=== PATIENT | female | born 1995 | race Caucasian/White ===

== ENCOUNTER 2017-05-13 18:23 | Emergency (ER) | payer OTHER ==
[2017-05-13 18:35] VITALS: O2SAT 100
[2017-05-13] MEDS ORDERED: ONDANSETRON 4MG PREPACK#2 BTL TAKEHOME ONE (19:00)
--- NOTE | 2017-05-13 19:01 | EDPHY ---
H & P Stated Complaint: KIDNEY PAIN X 2-3 DAYS. RECENT UYI Source: Patient Exam Limitations: No limitations - Personal History LMP (Females 10-55): 22-28 Days Ago Current Tetanus/Diphtheria Vaccine: Yes Current Tetanus Diphtheria and Acellular Pertussis (TDAP): Yes - Medical/Surgical History Hx Asthma: No Hx Chronic Respiratory Disease: No Hx Diabetes: No Hx Cardiac Disease: No Hx Renal Disease: No Hx Cirrhosis: No Hx Alcoholism: No Hx HIV/AIDS: No Hx Splenectomy or Spleen Trauma: No Other PMH: DENIES - Social History Smoking Status: Never smoked Time Seen by Provider: 05/13/17 19:01 HPI/ROS: HPI: This is a 22-year-old female who presents Chief Complaint: KIDNEY PAIN X 2-3 DAYS. RECENT UTI Location: Quality: Burning with urination Duration: 2-3 days Signs and Symptoms: no fever, + nausea, no vomiting, no hematemesis, no blood in stool, no abdominal bloating, no diarrhea, + back pain, + burning with urination, no vaginal bleeding/discharge Timing: Sudden, constant Severity: Moderate to severe Context: Patient is generally healthy, accompanied by her father, presents with 2-3 day history of burning with urination, blood in her urine, left flank pain, lower back pain. She reports that she was treated for urinary tract infection at urgent care approximately 2 weeks ago. She is given an antibiotic , unsure of the name, completed 7 day course. She denies any fever/chills/ diarrhea/vaginal bleeding/vaginal discharge. No heavy lifting/trauma. LMP was 2 weeks ago. Eating and drinking normally. Patient reports that she does have some nausea. Patient denies being sexually active. Modifying Factors: None Comment: ROS: see HPI Constitutional: No fever, no chills, no weight loss Eyes: No blurred vision Respiratory: No shortness of breath, no cough Cardiovascular: No chest pain, no palpitations Gastrointestinal: + nausea, no vomiting, no diarrhea, no hematemesis, no blood in stool Genitourinary: + dysuria, + blood in urine Extremities: No myalgias, no edema Neurologic: No weakness, no numbness Skin: No rashes, no petechiae Hematologic: No bruising, no bleeding MEDICAL/SURGICAL/SOCIAL HISTORY: Medical history: Generally healthy. Does not take any regular medications. Surgical history: Denies Social history: Lives with her father. Student. CONSTITUTIONAL: Extremely anxious well-appearing young adult, white female awake and alert, no obvious distress HEENT: Atraumatic and normocephalic, PERRL, EOMI. Tympanic membranes clear. Oropharynx clear, no exudate and moist pink mucosa. Airway patent. No lymphadenopathy. No meningismus. Cardiovascular: Normal S1/S2, regular rate, regular rhythm, without murmur rub or gallop. PULMONARY/CHEST: Symmetrical and nontender. Clear to auscultation bilaterally. Good air movement. No accessory muscle usage. ABDOMEN: Soft, nondistended, mild suprapubic tenderness, no rebound, no guarding, no peritoneal signs, no masses or organomegaly. Left CVAT. EXTREMITIES: 2/2 pulses, strength 5/5, no deformities, no clubbing, no cyanosis or edema. NEUROLOGICAL: no focal neuro deficits. GCS 15. SKIN: Warm and dry, no erythema. no rash. Good capillary refill. (Maya Chin) Constitutional: Initial Vital Signs Temperature (C) 36.9 C 05/13/17 18:31 Heart Rate 97 05/13/17 18:31 Respiratory Rate 18 05/13/17 18:31 Blood Pressure 102/59 L 05/13/17 18:31 O2 Sat (%) 100 05/13/17 18:31 O2 Delivery Mode Room Air Allergies/Adverse Reactions: Sulfa (Sulfonamide Antibiotics) Allergy (Verified 05/13/17 18:31) Home Medications: Medication Instructions Recorded Ciprofloxacin [Cipro] 500 mg PO BID #14 tab 05/13/17 Medical Decision Making ED Course/Re-evaluation: Labs, urinalysis, IV fluids, IV medications, CT abdomen and pelvis scan ordered Vital signs reviewed upon arrival. Afebrile no systemic signs. Patient given 1 L normal saline Chart review shows that she had E coli UTI on 04/14 that was resistant to Bactrim, cefoxitin, cefazolin. Sensitive to ceftriaxone/Levaquin/Macrobid. 1930: Urinalysis shows infection; IV Rocephin 1 g ordered 1949: Labs reviewed; WBC 11 K, no signs of acute kidney injury Called by radiologist who advised that CT abdomen and pelvis scan shows Features of UTI within the left urinary system, without perinephric abscess or focal pyelonephritis. Discussion with attending and will place patient on Cipro 500 mg twice daily for 7 days. She is to have a follow-up evaluation [facility] and repeat urinalysis at the end of her antibiotic course. This patient was seen under the supervision of my secondary supervising physician. I evaluated care for this patient independently. Discussed this patient with Dr. Giraldo who did not see the patient. Patient's presentation, labs/imaging, treatment and plan of care were discussed with secondary supervising physician. (Maya Chin) Differential Diagnosis: Differential diagnosis includes but is not limited to urinary tract infection, kidney stone, pyelonephritis, sepsis. (Maya Chin) Other Provider: The patient was evaluated and managed by the Physician Shear Scrapman. I discussed the patient's presentation and course with the physician property management assistant and agree with the evaluation. My co-signature indicates that I have reviewed this chart and I agree with the findings and plan of care as documented. I am the secondary supervising physician. (Franca Giraldo) - Data Points Laboratory Results: Laboratory Results 05/13/17 19:21 05/13/17 19:21 Microbiology Results: MICROBIOLOGY 05/13/17 18:56 Urine,Clean Catch Urine Culture - Final Escherichia Coli Medications Given: Discontinued Medications Sodium Chloride (Ns) 1,000 mls @ 0 mls/hr IV ONCE ONE; Wide Open PRN Reason: Protocol Stop: 05/13/17 19:12 Last Admin: 05/13/17 19:21 Dose: 1,000 mls Ceftriaxone Sodium/Dextrose (Rocephin 1 Gm (Premix)) 50 mls @ 100 mls/hr IV EDNOW ONE PRN Reason: Protocol Stop: 05/13/17 20:02 Last Admin: 05/13/17 19:47 Dose: 50 mls Departure - Departure Disposition: Home, Routine, Self-Care Clinical Impression: UTI (urinary tract infection) Condition: Good Instructions: Urinary Tract Infection in Women (ED) Additional Instructions: No sexual intercourse, douching, tampon use, baths until all symptoms of a urinary tract infection have cleared. Follow-up with [facility] in the next 7-10 days. Would benefit for repeat urinalysis at the end of her antibiotic course to ensure that infection has cleared. Drink plenty of fluids and wash genital area with mild soap and water daily. Take all antibiotics as indicated until complete. If at any time your symptoms worsen despite antibiotic; please follow-up with the emergency room for repeat evaluation. Referrals: Jennifer Rahman MD [Medical Doctor] - As per Instructions Prescriptions: Ciprofloxacin [Cipro] 500 mg PO BID #14 tab
[2017-05-13] MEDS ORDERED: NS 1,000 ML IV ONE (19:11)
[2017-05-13 19:30] LABS: PLATELET COUNT 191 10^3/uL (150-400)
[2017-05-13] MEDS ORDERED: IOPAMIDOL (ISOVUE-300) 100 ML BTL ONE (20:06)
[2017-05-13 21:28] VITALS: BP 112/72; PULSE 85; TEMP 99.1
[2017-05-13 21:30] VITALS: RESP 14
== END 2017-05-13 21:29 | disposition home or self-care (01) ==
DX: N30.01 Acute cystitis with hematuria (principal); B96.20 Unspecified Escherichia coli [E. coli] as the cause of diseases classified elsewhere; E86.9 Volume depletion, unspecified
CPT/HCPCS: 96365; J0696; Q9967

== ENCOUNTER 2018-03-20 00:45 | Emergency (ER) | payer MEDICAID, OTHER ==
--- NOTE | 2018-03-20 01:09 | EDPHY ---
H & P Stated Complaint: ANXIETY ATTACKS ALL DAY, TOOK SUPPLEMENTS- NOT HELPING Source: Patient - Personal History LMP (Females 10-55): 8-14 Days Ago Current Tetanus/Diphtheria Vaccine: Unsure - Medical/Surgical History Hx Asthma: No Hx Chronic Respiratory Disease: No Hx Diabetes: No Hx Cardiac Disease: No Hx Renal Disease: No Hx Cirrhosis: No Hx Alcoholism: No Hx HIV/AIDS: No Hx Splenectomy or Spleen Trauma: No Other PMH: ANXIETY - Social History Smoking Status: Current some day smoker Time Seen by Provider: 03/20/18 01:08 HPI/ROS: HPI CHIEF COMPLAINT: Anxiety attack, depressed, increased stress HISTORY OF PRESENT ILLNESS: 23-year-old female, presents emergency room by private vehicle stating she feels very anxious, having increasing depression, feeling increasing stress. She states her home situation very poor. She denies any specific plan for suicidal ideation but is eager to talk to mental health. She is feeling more anxious is unable to sleep and has been up for multiple nights. Denies any history of mental health illness except anxiety. Past Medical History: Anxiety Past Surgical History: Recent surgery Social History: History of MDMA use. Occasional alcohol use. Goes to school [employer]. Employed. Family History: Noncontributory ROS REVIEW OF SYSTEMS: 10 Systems were reviewed and negative with the exception of the elements mentioned in the history of present illness. Exam Constitutional anxious, tearful, nontoxic triage nursing summary reviewed, vital signs reviewed, awake/alert. Eyes normal conjunctivae and sclera, EOMI, PERRLA. HENT normal inspection, atraumatic, moist mucus membranes, no epistaxis, neck supple/ no meningismus, no raccoon eyes. Respiratory clear to auscultation bilaterally, normal breath sounds, no respiratory distress, no wheezing. Cardiovascular rate normal, regular rhythm, no murmur, no edema, distal pulses normal. Gastrointestinal soft, non-tender, no rebound, no guarding, normal bowel sounds, no distension, no pulsatile mass. Genitourinary no CVA tenderness. Musculoskeletal no midline vertebral tenderness, full range of motion, no calf swelling, no tenderness of extremities, no meningismus, good pulses, neurovascularly intact. Skin pink, warm, & dry, no rash, skin atraumatic. Neurologic awake, alert and oriented x 3, AAOx3, moves all 4 extremities equally, motor intact, sensory intact, CN II-XII intact, normal cerebellar, normal vision, normal speech. Psychiatric anxious, tearful, flat affect, depressed. Heme/Lymph/Immune no lymphadenopathy. Differential Diagnosis: Includes but is not limited to in a particular order mood disorder, anxiety, depression, substance abuse, increased stressors. Medical Decision Making: Plan for this patient blood draw for medical clearance , 1 mg p.o. Ativan for anxiety. Patient is requesting speak with mental health. Re-evaluation: 0557AM: Signed over to Dr. Valencia at 7am. No events overnight. Not on hold. Wants to speak to Mental Health. (Ja Lomax) Constitutional: Initial Vital Signs Temperature (C) 36.6 C 03/20/18 00:49 Heart Rate 63 03/20/18 00:49 Respiratory Rate 20 03/20/18 00:49 Blood Pressure 119/83 H 03/20/18 00:49 O2 Sat (%) 99 03/20/18 00:49 O2 Delivery Mode Room Air Allergies/Adverse Reactions: Sulfa (Sulfonamide Antibiotics) Allergy (Verified 03/20/18 00:48) Home Medications: Medication Instructions Recorded Supplements 03/20/18 Medical Decision Making Other Provider: I assumed care of the patient care 0700. She was seen by the psych production control coordinator (TRUDI Darby) and has been given outpatient resources. She contracts for safety and doesn't meet criteria for an involuntary hold. (Spencer Valencia) - Data Points Laboratory Results: Laboratory Results 03/20/18 01:30 03/20/18 01:30 03/20/18 03/20/18 03/20/18 03:00 01:30 01:30 WBC RBC Hgb Hct MCV MCH MCHC RDW Plt Count MPV Neut % (Auto) Lymph % (Auto) [place] % (Auto) Eos % (Auto) Baso % (Auto) Nucleat RBC Rel Count Absolute Neuts (auto) Absolute Lymphs (auto) Absolute Monos (auto) Absolute Eos (auto) Absolute Basos (auto) Absolute Nucleated RBC Immature Gran % Immature Gran # Sodium 140 mEq/L mEq/L (135-145) Potassium 3.8 mEq/L mEq/L (3.3-5.0) Chloride 106 mEq/L mEq/L (97-110) Carbon Dioxide 24 mEq/l mEq/l (22-31) Anion Gap 10 mEq/L mEq/L (6-14) BUN 15 mg/dL mg/dL (7-23) Creatinine 0.7 mg/dL mg/dL (0.6-1.0) Estimated GFR > 60 Glucose 89 mg/dL mg/dL (70-100) Calcium 9.8 mg/dL mg/dL (8.5-10.4) Beta HCG, Qual NEGATIVE Urine Opiates Screen NEGATIVE (NEGATIVE) Urine Barbiturates NEGATIVE (NEGATIVE) Ur Phencyclidine Scrn NEGATIVE (NEGATIVE) Ur Amphetamine Screen NEGATIVE (NEGATIVE) U Benzodiazepines Scrn NEGATIVE (NEGATIVE) Urine Cocaine Screen NEGATIVE (NEGATIVE) U Marijuana (THC) Screen NEGATIVE (NEGATIVE) Ethyl Alcohol < 10 mg/dL mg/dL (0-10) 03/20/18 01:30 WBC 9.49 10^3/uL 10^3/uL (3.80-9.50) RBC 4.60 10^6/uL 10^6/uL (4.18-5.33) Hgb 14.6 g/dL g/dL (12.6-16.3) Hct 42.3 % % (38.0-47.0) MCV 92.0 fL fL (81.5-99.8) MCH 31.7 pg pg (27.9-34.1) MCHC 34.5 g/dL g/dL (32.4-36.7) RDW 13.1 % % (11.5-15.2) Plt Count 259 10^3/uL 10^3/uL (150-400) MPV 10.1 fL fL (8.7-11.7) Neut % (Auto) 47.7 % % (39.3-74.2) Lymph % (Auto) 39.5 % % (15.0-45.0) [place] % (Auto) 11.0 % % (4.5-13.0) Eos % (Auto) 0.8 % % (0.6-7.6) Baso % (Auto) 0.8 % % (0.3-1.7) Nucleat RBC Rel Count 0.0 % % (0.0-0.2) Absolute Neuts (auto) 4.52 10^3/uL 10^3/uL (1.70-6.50) Absolute Lymphs (auto) 3.75 10^3/uL H 10^3/uL (1.00-3.00) Absolute Monos (auto) 1.04 10^3/uL H 10^3/uL (0.30-0.80) Absolute Eos (auto) 0.08 10^3/uL 10^3/uL (0.03-0.40) Absolute Basos (auto) 0.08 10^3/uL 10^3/uL (0.02-0.10) Absolute Nucleated RBC 0.00 10^3/uL 10^3/uL (0-0.01) Immature Gran % 0.2 % % (0.0-1.1) Immature Gran # 0.02 10^3/uL 10^3/uL (0.00-0.10) Sodium Potassium Chloride Carbon Dioxide Anion Gap BUN Creatinine Estimated GFR Glucose Calcium Beta HCG, Qual Urine Opiates Screen Urine Barbiturates Ur Phencyclidine Scrn Ur Amphetamine Screen U Benzodiazepines Scrn Urine Cocaine Screen U Marijuana (THC) Screen Ethyl Alcohol Medications Given: Discontinued Medications Lorazepam (Ativan) 1 mg PO EDNOW ONE Stop: 03/20/18 01:13 Last Admin: 03/20/18 01:22 Dose: 1 mg Departure - Departure Disposition: Home, Routine, Self-Care Clinical Impression: Anxiety attack Condition: Good Instructions: Anxiety (ED) Additional Instructions: 1. Please follow-up with the mental health resources provided in the ED today. 2. [facility] does operate a 24/7 psychiatric crisis unit located at [address] [place] [address]. The telephone number for the 24 hour crisis center is [phone]. 3. Please return to the ED if you are feeling suicidal, having thoughts of harming yourself/others or should you feel unsafe or have worsening symptoms. Referrals: [facility],. [Clinic] - As per Instructions
[2018-03-20] MEDS ORDERED: LORazepam 1 MG TAB PO ONE (01:12)
[2018-03-20 01:41] LABS: PLATELET COUNT 259 10^3/uL (150-400)
[2018-03-20 07:40] VITALS: BP 110/76
--- NOTE | 2018-03-20 07:52 | ASMTLCPROG ---
Notes Note: Notes: TRUDI consulted with overnight ED Physician, Dr. Ja Lomax. Pt requested to be seen since she had self presented due to anxiety. Pt noted as not endorsing SI or HI and did not present as gravely disabled so pt was not placed on a M1 hold. Complete MH evaluation was not requested but request made to see pt due to her presentation of mental health concerns. Pt presented as alert and orientated in a calm mood. Pt was seen at 07:00. She was calm and stated, "I feel a million times better." Pt stated she felt better with a good night sleep and medication for her anxiety. Pt reports she has a therapist named Vicki, (last name unknown) who she has been seeing on a weekly basis for a few months now. Pt stated she quit using marijuana a few weeks ago after a long hx of daily marijuana use. 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 TLC provided assessment of her current needs and provided education how abruptly stopping marijuana and not having other coping mechanisms in place may be impacting her ability to cope. It was recommended pt see a Psychiatrist to consider a psychotropic medication which would help her manage symptoms of anxiety. Pt denies any past psychotropic medications any past suicide attempts or past suicidal thoughts or self harming behaviors. Pt also denied any past inpt treatments for mental health or substance abuse treatment. Given pt has Medicaid insurance pt was referred to the local mental health center, [facility] for a prescriber and also as a 24 hour crisis clinic if in the future needing immediate treatment for anxiety. Pt reports ability to keep herself safe. She reports plan to f/u with her therapist and consider seeing a prescriber for medications. TRUDI consulted with assigned ED Physician, Dr. Buddy Valencia to discuss dispo. Pt will be discharged home and encouraged to f/u with her therapist and seek consultation for medications to assist in treatment of anxiety. Date Signed: 03/20/2018 07:51 AM Electronically Signed By:Mehnaz Tierney
== END 2018-03-20 07:40 | disposition home or self-care (01) ==
DX: F41.0 Panic disorder [episodic paroxysmal anxiety] (principal); F32.9 Major depressive disorder, single episode, unspecified; F17.200 Nicotine dependence, unspecified, uncomplicated; Z88.0 Allergy status to penicillin
CPT/HCPCS: 80305; G0480